=== PATIENT | female | born 1970 | race Caucasian/White ===

== ENCOUNTER 2019-01-24 14:35 | Emergency (ER) | payer BC ==
[~2019-01-24] VITALS: Ht 177.8 cm; Wt 100.0 kg
[~2019-01-24 14:35] MED LIST: JANUVIA100 MG
[2019-01-24] MEDS ORDERED: NEURONTIN100 MG PO (14:55)
[2019-01-24] MEDS ORDERED: CELEBREX100 M1 PO (14:56)
[2019-01-24] MEDS ORDERED: CYCLOBENZAPR5 MG PO (15:09)
[2019-01-24 15:23] VITALS: BP 128/70
[2019-01-24] MEDS ORDERED: PREDNISONE50 MG PO (15:26)
== END 2019-01-24 15:30 | disposition home or self-care (01) | DRG 563 ==
LOC: ED 14:35
DX: S39.012A Strain of muscle, fascia and tendon of lower back, initial encounter (principal); M54.5 Low back pain; M79.651 Pain in right thigh; X50.0XXA Overexertion from strenuous movement or load, initial encounter; Y93.89 Activity, other specified; Y92.89 Other specified places as the place of occurrence of the external cause

== ENCOUNTER 2022-01-28 15:19 | Emergency (ER) | payer BC ==
[2022-01-28] VITALS (9 sets, daily range): BP systolic 101–157; BP diastolic 70–85
[~2022-01-28] VITALS: Ht 177.8 cm; Wt 103.1 kg
[~2022-01-28 15:19] MED LIST changes: +CELEBREX100 M1 PO; +CYCLOBENZAPR5 MG PO; +NEURONTIN100 MG PO; +PREDNISONE50 MG PO
[2022-01-28 15:52] LABS: HEMATOCRIT 37.6 % (37.0-47.0); HEMOGLOBIN 12.4 g/dl (12.0-16.0); IMMATURE GRANULOCYTES 0.1 % (0.0-5.0); MEAN CELL VOLUME 88.5 fL CALC (80.0-100.0); MEAN CORPUSCULAR HGB 29.2 pG CALC (26.0-32.0); NEUT# 5.31 thou/uL (2.00-7.15); RED BLOOD COUNT 4.25 mill/uL (4.20-5.60); RED CELL DISTRI WIDTH 12.5 % (11.5-15.5)
[2022-01-28 16:00] LABS: ALBUMIN 4.1 g/dL (3.2-5.0); ALKALINE PHOSPHATASE 143 u/l (38-126); ANION GAP 11 (6-22 (CALC)); BILIRUBIN, TOTAL 0.4 mg/dL (0.0-1.4); BUN 12 mg/dL (7-17); BUN/CREATININE RATIO 19 (12-20 (CALC)); CARBON DIOXIDE 26 mmol/l (22-30); CHLORIDE 106 mmol/l (95-108); CREATININE 0.6 mg/dL (0.5-1.0); GFR FOR AFR.AMER. > 60 ML/MIN (>=60 (CALC)); GFR OTHER RACES > 60 ML/MIN (>=60 (CALC)); POTASSIUM 4.3 mmol/l (3.5-5.1); SGOT/AST 59 u/l (14-36); SODIUM 139 mmol/l (137-146); TOTAL PROTEIN 7.6 g/dL (6.3-8.2)
[2022-01-28] MEDS ORDERED: HYDROCO/APAP1 TA9 PO (19:36)
[2022-01-28] MEDS ORDERED: ONDANSETRON4 MG PO (19:36)
[2022-01-28] MEDS ORDERED: NAPROXEN500 MG PO (19:36)
== END 2022-01-28 20:24 | disposition home or self-care (01) | DRG 605 ==
LOC: ED 15:19
PROVIDERS: Nurse Practitioner
DX: S70.02XA Contusion of left hip, initial encounter (principal); G62.9 Polyneuropathy, unspecified; W01.0XXA Fall on same level from slipping, tripping and stumbling without subsequent striking against object, initial encounter

== ENCOUNTER 2022-01-30 20:03 | Emergency (ER) | payer BC ==
[~2022-01-30] VITALS: Ht 177.8 cm; Wt 89.0 kg
[2022-01-30] VITALS (9 sets, daily range): BP systolic 109–158; BP diastolic 63–98
[~2022-01-30 20:03] MED LIST changes: +HYDROCO/APAP1 TA9 PO; +NAPROXEN500 MG PO; +ONDANSETRON4 MG PO
[2022-01-30 20:31] LABS: HEMATOCRIT 39.3 % (37.0-47.0); HEMOGLOBIN 13.2 g/dl (12.0-16.0); IMMATURE GRANULOCYTES 0.4 % (0.0-5.0); MEAN CELL VOLUME 87.5 fL CALC (80.0-100.0); MEAN CORPUSCULAR HGB 29.4 pG CALC (26.0-32.0); MEAN CORPUSCULAR HGB CONC 33.6 g/dL CAL (32.0-36.0); NEUT# 8.19 thou/uL (2.00-7.15); RED BLOOD COUNT 4.49 mill/uL (4.20-5.60); RED CELL DISTRI WIDTH 12.7 % (11.5-15.5)
[2022-01-30 20:54] LABS: ALBUMIN 4.5 g/dL (3.2-5.0); AMYLASE 100 u/l (30-110); ANION GAP 15 (6-22 (CALC)); BUN 16 mg/dL (7-17); BUN/CREATININE RATIO 20 (12-20 (CALC)); CARBON DIOXIDE 26 mmol/l (22-30); CHLORIDE 106 mmol/l (95-108); CREATININE 0.8 mg/dL (0.5-1.0); ETHYL ALCOHOL 0 mg/dl (0-30); GFR FOR AFR.AMER. > 60 ML/MIN (>=60 (CALC)); GFR OTHER RACES > 60 ML/MIN (>=60 (CALC)); LIPASE 315 u/l (23-300); POTASSIUM 3.7 mmol/l (3.5-5.1); SODIUM 143 mmol/l (137-146); TOTAL PROTEIN 8.7 g/dL (6.3-8.2)
[2022-01-30 20:57] LABS: ALKALINE PHOSPHATASE 250 u/l (38-126); BILIRUBIN, TOTAL 1.3 mg/dL (0.0-1.4); SGOT/AST 362 u/l (14-36)
[2022-01-30 21:04] LABS: MYOGLOBIN 40 ng/mL (0 - 62)
[2022-01-31 00:47] LABS: URINE BLOOD DIPSTICK TRACE-INTACT (NEGATIVE); URINE COLOR YELLOW; URINE GLUCOSE - DIPSTICK NEGATIVE (NEGATIVE); URINE KETONE TRACE mg/dL (NEGATIVE); URINE LEUK ESTERASE NEGATIVE (NEGATIVE); URINE PROTEIN - DIPSTICK NEGATIVE (NEG-TRACE)
[2022-01-31 00:49] LABS: URINE BILIRUBIN - DIPSTICK SMALL (NEGATIVE); URINE NITRITE - DIPSTICK NEGATIVE (Negative)
[2022-01-31] MEDS ORDERED: EQ OMEPRAZOLE20 MG PO (01:47)
[2022-01-31 02:04] VITALS: BP 138/82
== END 2022-01-31 02:30 | disposition home or self-care (01) | DRG 392 ==
LOC: ED 20:03
PROVIDERS: Emergency Medicine
DX: K29.70 Gastritis, unspecified, without bleeding (principal); R74.8 Abnormal levels of other serum enzymes; G62.9 Polyneuropathy, unspecified; Z20.822 Contact with and (suspected) exposure to COVID-19
CPT/HCPCS: S0164

== ENCOUNTER 2022-02-03 01:06 | Emergency (ER) | payer BC ==
[~2022-02-03] VITALS: Ht 177.8 cm; Wt 88.6 kg
[~2022-02-03 01:06] MED LIST changes: +EQ OMEPRAZOLE20 MG PO
[2022-02-03 01:16] VITALS: BP 157/85
[2022-02-03 01:34] LABS: HEMATOCRIT 39.2 % (37.0-47.0); HEMOGLOBIN 12.9 g/dl (12.0-16.0); IMMATURE GRANULOCYTES 0.7 % (0.0-5.0); MEAN CELL VOLUME 88.9 fL CALC (80.0-100.0); MEAN CORPUSCULAR HGB 29.3 pG CALC (26.0-32.0); MEAN CORPUSCULAR HGB CONC 32.9 g/dL CAL (32.0-36.0); NEUT# 9.14 thou/uL (2.00-7.15); RED BLOOD COUNT 4.41 mill/uL (4.20-5.60); RED CELL DISTRI WIDTH 12.6 % (11.5-15.5)
[2022-02-03 01:47] LABS: ALBUMIN 4.6 g/dL (3.2-5.0); ALKALINE PHOSPHATASE 230 u/l (38-126); ANION GAP 15 (6-22 (CALC)); BILIRUBIN, TOTAL 1.6 mg/dL (0.0-1.4); BUN 10 mg/dL (7-17); BUN/CREATININE RATIO 16 (12-20 (CALC)); CARBON DIOXIDE 25 mmol/l (22-30); CHLORIDE 103 mmol/l (95-108); CREATININE 0.6 mg/dL (0.5-1.0); GFR FOR AFR.AMER. > 60 ML/MIN (>=60 (CALC)); GFR OTHER RACES > 60 ML/MIN (>=60 (CALC)); LIPASE 154 u/l (23-300); SGOT/AST 230 u/l (14-36); SODIUM 138 mmol/l (137-146); TOTAL PROTEIN 8.8 g/dL (6.3-8.2)
[2022-02-03 01:49] LABS: ACT PARTIAL THROMBO TIME 23.6 SECONDS (20.0-32.5); PROTHROMBIN TIME 10.3 SECONDS (9.0-12.5)
[2022-02-03 01:53] LABS: POTASSIUM 4.7 mmol/l (3.5-5.1)
[2022-02-03 01:59] LABS: MYOGLOBIN 37 ng/mL (0 - 62)
[2022-02-03 02:03] LABS: D-DIMER 0.37 mg/L (0.19-0.60)
[2022-02-03 02:14] LABS: URINE BLOOD DIPSTICK NEGATIVE (NEGATIVE); URINE COLOR YELLOW; URINE GLUCOSE - DIPSTICK NEGATIVE (NEGATIVE); URINE KETONE 15 mg/dL (NEGATIVE); URINE LEUK ESTERASE NEGATIVE (NEGATIVE); URINE PH 5.5 (4.5-8.0); URINE PROTEIN - DIPSTICK NEGATIVE (NEG-TRACE); URINE SPECIFIC GRAVITY 1.025
[2022-02-03 02:17] LABS: URINE BILIRUBIN - DIPSTICK SMALL (NEGATIVE); URINE NITRITE - DIPSTICK NEGATIVE (Negative)
[2022-02-03 02:21] LABS: URINE BACTERIA MODERATE hpf; URINE EPITHELIAL CELLS MANY EPI/hpf (0-FEW)
[2022-02-03] MEDS ORDERED: NEXIUM40 M1 PO (05:06)
[2022-02-03 05:10] VITALS: BP 157/75
== END 2022-02-03 05:47 | disposition home or self-care (01) | DRG 392 ==
LOC: ED 01:06
PROVIDERS: Family Medicine
DX: K29.70 Gastritis, unspecified, without bleeding (principal); R74.8 Abnormal levels of other serum enzymes; G62.9 Polyneuropathy, unspecified
CPT/HCPCS: Q9967; S0164